=== PATIENT | female | born 1950 | race Caucasian/White ===

== ENCOUNTER → 2016-08-22 | Outpatient (CLI) | payer MEDICARE, MEDICAID ==
[~2016-08-22] MED LIST: ASPIRIN 32325 MG/TAB PO; ATARAX 25MG25 MG/TAB PO; CELEXA 20MG20 MG/TAB PO; CELEXA40 MG PO; CEPHALEXIN250 M1 PO; CIPRO 500MG TA500 MG PO; CLEOCIN HC150 MG/CAP PO; DUTOPROL 12.5 M1 TE2 PO; EFFEXOR-XR150 MG PO; FLEXERIL 1010 MG/TAB PO; FLOMAX 0.40.4 MG/CAP PO; FOSAMAX 70MG TA70 MG PO; GLUCOPHAGE500 MG/TAB PO; INDERAL 20MG20 MG PO; INDOCIN 25MG CA25 MG PO; IRON325 M2 PO; LEVAQUIN 2250 MG/TAB PO; LEVAQUIN 5500 MG/TA1 PO; LEVAQUIN 750MG750 M1 PO; LIORESAL 1010 MG/TAB PO; LIORESAL20 MG PO; MACROBID 1100 MG/CAP PO; MOTRIN 800800 MG/TAB PO; NORVASC 5MG5 MG/TAB PO; PERCOCET 325 MG1 TA2 PO; PRINIVIL10 MG PO; PROTONIX 40MG T40 MG PO; PYRIDIUM 100MG100 MG PO; TYLENOL 500MG500 MG PO; ULTRAM 50MG TAB50 MG PO; XANAX .25M0.25 MG/TA PO; ZESTRIL 20MG TA20 MG PO; ZOCOR 40MG40 MG PO
== END ==
LOC: MC.RAD 11:20
DX: Z12.31 Encounter for screening mammogram for malignant neoplasm of breast (principal); R92.1 Mammographic calcification found on diagnostic imaging of breast

== ENCOUNTER 2016-09-01 12:09 | Inpatient (IN) | payer MEDICARE, MEDICAID ==
[~2016-09-01] VITALS: Ht 162.6 cm; Wt 71.3 kg
[~2016-09-01 12:09] MED LIST changes: -CELEXA40 MG PO; -CEPHALEXIN250 M1 PO; -DUTOPROL 12.5 M1 TE2 PO; -EFFEXOR-XR150 MG PO; -FLOMAX 0.40.4 MG/CAP PO; -IRON325 M2 PO; -LEVAQUIN 2250 MG/TAB PO; -LEVAQUIN 5500 MG/TA1 PO; -LIORESAL 1010 MG/TAB PO; -NORVASC 5MG5 MG/TAB PO; -PROTONIX 40MG T40 MG PO
[2016-09-01] MEDS ORDERED: FLOMAX 0.40.4 MG/CAP PO (12:31)
[2016-09-01 13:17] LABS: BASO # 0.1 (0.0-0.2); BASO % 0.4 % (0.0-2.0); EOS # 0.1 (0.0-0.7); EOS % 0.4 % (0-4.0); GRAN # 9.8 (1.4-6.5); GRAN % 84.1 % (42.2-75.2); LYMPH # 0.8 (1.2-3.4); LYMPH % 6.5 % (20.0-51.0); MEAN CELL VOLUME 85 fl (80.0-100.0); MEAN CORPUSCULAR HGB CONC 34 g/dl (33.0-37.0); MEAN PLATELET VOLUME 11.3 fl (7.4-10.4); MONO # 0.9 (0.1-0.6); PLATELET COUNT 234 K/mm3 (130-400); RED BLOOD COUNT 3.62 M/mm3 (4.10-5.30); REDCELL DISTRIBUTION WIDTH-CV 12.3 % (11.5-14.5); WHITE BLOOD COUNT 11.7 K/mm3 (4.8-10.8)
[2016-09-01 13:20] LABS: HEMATOCRIT 30.7 % (37.0-47.0); HEMOGLOBIN 10.3 g/dl (12.5-16.0); MEAN CORPUSCULAR HEMOGLOBIN 28 pg (27.0-31.0)
[2016-09-01 13:22] LABS: ADJUSTED CALCIUM 9.9 mg/dL (8.4-10.2); ALBUMIN 3.5 gm/dL (3.5-5.0); BILIRUBIN,TOTAL 0.7 mg/dL (0.0-1.0); CALCIUM 9.5 mg/dL (8.4-10.2); CREATININE, serum 1.96 mg/dL (0.52-1.25); POTASSIUM 3.5 mmol/L (3.4-5.0); TOTAL PROTEIN 7.4 gm/dL (6.4-8.2)
[2016-09-01 13:27] LABS: PH 5 (5-8); URINE APPEARANCE Cloudy; URINE BACTERIA Many /hpf; URINE BILIRUBIN Negative (NEGATIVE); URINE BLOOD 2+ (NEGATIVE); URINE COLOR Yellow; URINE GLUCOSE Negative (NEGATIVE); URINE KETONE Negative (NEGATIVE); URINE UROBILINOGEN Negative (NEGATIVE); URINE WBC >50 /hpf
[2016-09-01 14:45] VITALS: BP 96/58; PULSE 65; TEMP 96.8
[2016-09-01] MEDS ORDERED: CELEXA40 MG PO (15:10)
[2016-09-01] MEDS ORDERED: LIORESAL20 MG PO (15:13)
[2016-09-01] MEDS ORDERED: LIORESAL 1010 MG/TAB PO (15:13)
[2016-09-01 20:52] VITALS: BP 116/62; PULSE 74; TEMP 98.2
[2016-09-02] VITALS (8 sets, daily range): BP systolic 78–110; BP diastolic 39–75; PULSE 62–71; TEMP 97.6–98.7
[2016-09-02 07:07] LABS: BASO % 0.1 % (0.0-2.0); EOS # 0.1 (0.0-0.7); EOS % 1.2 % (0-4.0); GRAN # 6.6 (1.4-6.5); GRAN % 77.3 % (42.2-75.2); LYMPH % 11.3 % (20.0-51.0); MEAN CELL VOLUME 88 fl (80.0-100.0); MEAN CORPUSCULAR HGB CONC 33 g/dl (33.0-37.0); MEAN PLATELET VOLUME 11.4 fl (7.4-10.4); MONO # 0.8 (0.1-0.6); MONO % 8.9 % (1.7-9.3); PLATELET COUNT 217 K/mm3 (130-400); RED BLOOD COUNT 2.92 M/mm3 (4.10-5.30); REDCELL DISTRIBUTION WIDTH-CV 12.8 % (11.5-14.5); WHITE BLOOD COUNT 8.5 K/mm3 (4.8-10.8)
[2016-09-02 07:13] LABS: HEMATOCRIT 25.6 % (37.0-47.0); HEMOGLOBIN 8.4 g/dl (12.5-16.0); MEAN CORPUSCULAR HEMOGLOBIN 29 pg (27.0-31.0)
[2016-09-02 07:26] LABS: CALCIUM 8.4 mg/dL (8.4-10.2); CREATININE, serum 1.52 mg/dL (0.52-1.25); POTASSIUM 3.6 mmol/L (3.4-5.0)
[2016-09-03 05:15] VITALS: BP 106/59; PULSE 70; TEMP 97.5
[2016-09-03 08:44] VITALS: BP 91/51; PULSE 73; TEMP 98.4
[2016-09-03 09:19] LABS: MEAN CELL VOLUME 89 fl (80.0-100.0); MEAN CORPUSCULAR HGB CONC 32 g/dl (33.0-37.0); MEAN PLATELET VOLUME 10.6 fl (7.4-10.4); PLATELET COUNT 308 K/mm3 (130-400); REDCELL DISTRIBUTION WIDTH-CV 13.2 % (11.5-14.5)
[2016-09-03 09:22] LABS: ADD PATHOLOGY DIFF REVIEW NO; HEMATOCRIT 27.7 % (37.0-47.0); HEMOGLOBIN 8.9 g/dl (12.5-16.0); MEAN CORPUSCULAR HEMOGLOBIN 29 pg (27.0-31.0)
[2016-09-03 09:33] LABS: CREATININE, serum 1.42 mg/dL (0.52-1.25); POTASSIUM 3.8 mmol/L (3.4-5.0)
[2016-09-03 09:35] LABS: BAND 7 % (0-10); BASOPHIL 2 % (0-2); METAMYELOCYTE 2 % (0-0); MYELOCYTE 1 % (0-0); NEUTROPHILS 63 % (42.0-75.2); PLATELET ESTIMATE NORMAL (NORMAL); TOTAL CELLS COUNTED 100
[2016-09-03 16:38] VITALS: BP 122/97; PULSE 62; TEMP 98.4
[2016-09-03 20:43] VITALS: BP 127/68; PULSE 61; TEMP 96.9
[2016-09-04 00:31] VITALS: BP 115/68; PULSE 66; TEMP 98.4
[2016-09-04 04:43] VITALS: BP 129/72; PULSE 62; TEMP 99.3
[2016-09-04 07:55] VITALS: BP 112/64; PULSE 72; TEMP 97.9
[2016-09-04 09:29] LABS: MEAN CELL VOLUME 88 fl (80.0-100.0); MEAN CORPUSCULAR HGB CONC 32 g/dl (33.0-37.0); MEAN PLATELET VOLUME 10.8 fl (7.4-10.4); PLATELET COUNT 345 K/mm3 (130-400); RED BLOOD COUNT 3.16 M/mm3 (4.10-5.30); REDCELL DISTRIBUTION WIDTH-CV 13.4 % (11.5-14.5); WHITE BLOOD COUNT 8.3 K/mm3 (4.8-10.8)
[2016-09-04 09:35] LABS: ADD PATHOLOGY DIFF REVIEW NO; HEMATOCRIT 27.7 % (37.0-47.0); HEMOGLOBIN 8.9 g/dl (12.5-16.0); MEAN CORPUSCULAR HEMOGLOBIN 28 pg (27.0-31.0)
[2016-09-04 09:37] LABS: CALCIUM 9.3 mg/dL (8.4-10.2); CREATININE, serum 1.55 mg/dL (0.52-1.25); POTASSIUM 4.2 mmol/L (3.4-5.0)
[2016-09-04 10:06] LABS: BAND 3 % (0-10); BASOPHIL 3 % (0-2); EOSINOPHIL 1 % (0-4); METAMYELOCYTE 1 % (0-0); MYELOCYTE 1 % (0-0); NEUTROPHILS 65 % (42.0-75.2); PLATELET ESTIMATE NORMAL (NORMAL); TOTAL CELLS COUNTED 100
[2016-09-04 11:55] VITALS: BP 109/73; PULSE 68; TEMP 97.8
[2016-09-04 15:44] VITALS: BP 130/54; PULSE 61; TEMP 98.1
[2016-09-04 21:07] VITALS: BP 118/73; PULSE 63; TEMP 98
[2016-09-05 01:00] VITALS: BP 115/74; PULSE 64; TEMP 97.8
[2016-09-05 04:30] VITALS: BP 113/56; PULSE 63; TEMP 97.9
[2016-09-05 07:53] VITALS: BP 127/71; PULSE 65; TEMP 98.7
[2016-09-05 11:38] VITALS: BP 110/73; PULSE 64; TEMP 97.8
[2016-09-05 11:52] LABS: CALCIUM 9.2 mg/dL (8.4-10.2); CREATININE, serum 1.52 mg/dL (0.52-1.25); POTASSIUM 4.2 mmol/L (3.4-5.0)
[2016-09-05 12:09] LABS: MEAN CELL VOLUME 87 fl (80.0-100.0); MEAN CORPUSCULAR HGB CONC 32 g/dl (33.0-37.0); MEAN PLATELET VOLUME 10.5 fl (7.4-10.4); PLATELET COUNT 409 K/mm3 (130-400); RED BLOOD COUNT 3.05 M/mm3 (4.10-5.30); REDCELL DISTRIBUTION WIDTH-CV 13.2 % (11.5-14.5); WHITE BLOOD COUNT 8.9 K/mm3 (4.8-10.8)
[2016-09-05 12:42] LABS: HEMATOCRIT 26.6 % (37.0-47.0); HEMOGLOBIN 8.6 g/dl (12.5-16.0); MEAN CORPUSCULAR HEMOGLOBIN 28 pg (27.0-31.0)
[2016-09-05 12:43] LABS: ADD PATHOLOGY DIFF REVIEW NO
[2016-09-05 14:21] LABS: BAND 6 % (0-10); EOSINOPHIL 2 % (0-4); METAMYELOCYTE 5 % (0-0); MYELOCYTE 3 % (0-0); NEUTROPHILS 60 % (42.0-75.2); TOTAL CELLS COUNTED 100
[2016-09-05 14:24] LABS: ANISOCYTOSIS 1+; HYPOCHROMIA 1+; MICROCYTOSIS 1+
[2016-09-05] MEDS ORDERED: PROTONIX 40MG T40 MG PO ×2 (15:00→15:23)
[2016-09-05] MEDS ORDERED: LEVAQUIN 5500 MG/TA1 PO (15:01)
[2016-09-05] MEDS ORDERED: IRON325 M2 PO (15:04)
[2016-09-05] MEDS ORDERED: LEVAQUIN 2250 MG/TAB PO (15:22)
== END 2016-09-05 17:00 | disposition home or self-care (01) | DRG 872 ==
LOC: COL.ER 12:09 → MEDICAL 13:46
PROVIDERS: Emergency Medicine; Internal Medicine
DX: A41.9 Sepsis, unspecified organism (principal); N10 Acute pyelonephritis; N13.6 Pyonephrosis; I12.9 Hypertensive chronic kidney disease with stage 1 through stage 4 chronic kidney disease, or unspecified chronic kidney disease; E11.22 Type 2 diabetes mellitus with diabetic chronic kidney disease; N18.3 Chronic kidney disease, stage 3 (moderate); D63.1 Anemia in chronic kidney disease; R13.10 Dysphagia, unspecified; R33.9 Retention of urine, unspecified; E86.0 Dehydration; B95.1 Streptococcus, group B, as the cause of diseases classified elsewhere; Z87.891 Personal history of nicotine dependence
CPT/HCPCS: OP; 99232-AI; 99233-AI; 99239; G0378; J1170; J1956; J7030

== ENCOUNTER 2017-02-21 14:41 | Emergency (ER) | payer MEDICARE, MEDICAID ==
[~2017-02-21] VITALS: Ht 162.6 cm; Wt 69.5 kg
[~2017-02-21 14:41] MED LIST changes: +CELEXA40 MG PO; +FLOMAX 0.40.4 MG/CAP PO; +IRON325 M2 PO; +LEVAQUIN 2250 MG/TAB PO; +LEVAQUIN 5500 MG/TA1 PO; +LIORESAL 1010 MG/TAB PO; +PROTONIX 40MG T40 MG PO
[2017-02-21 14:49] VITALS: TEMP 98.2
[2017-02-21] MEDS ORDERED: EFFEXOR-XR150 MG PO (15:53)
[2017-02-21] MEDS ORDERED: CEPHALEXIN250 M1 PO ×2 (15:53)
[2017-02-21 15:54] LABS: BASO % 0.3 % (0.0-2.0); EOS # 0.1 (0.0-0.7); EOS % 0.8 % (0-4.0); GRAN # 5.7 (1.4-6.5); GRAN % 74.4 % (42.2-75.2); LYMPH # 1.3 (1.2-3.4); LYMPH % 16.2 % (20.0-51.0); MEAN CELL VOLUME 86 fl (80.0-100.0); MEAN CORPUSCULAR HGB CONC 33 g/dl (33.0-37.0); MEAN PLATELET VOLUME 11.1 fl (7.4-10.4); MONO # 0.6 (0.1-0.6); PLATELET COUNT 228 K/mm3 (130-400); RED BLOOD COUNT 3.35 M/mm3 (4.10-5.30); REDCELL DISTRIBUTION WIDTH-CV 13.1 % (11.5-14.5); WHITE BLOOD COUNT 7.7 K/mm3 (4.8-10.8)
[2017-02-21] MEDS ORDERED: DUTOPROL 12.5 M1 TE2 PO (15:54)
[2017-02-21 15:55] LABS: HEMATOCRIT 28.7 % (37.0-47.0); HEMOGLOBIN 9.5 g/dl (12.5-16.0); MEAN CORPUSCULAR HEMOGLOBIN 28 pg (27.0-31.0)
[2017-02-21] MEDS ORDERED: NORVASC 5MG5 MG/TAB PO (15:55)
[2017-02-21] MEDS ORDERED: XANAX .25M0.25 MG/TA PO (15:56)
[2017-02-21 16:18] LABS: ADJUSTED CALCIUM 9.2 mg/dL (8.4-10.2); ALBUMIN 3.7 gm/dL (3.5-5.0); BILIRUBIN,TOTAL 0.4 mg/dL (0.0-1.0); C-REACTIVE PROTEIN 3.1 mg/dL (0.0-0.9); CREATININE, serum 2.31 mg/dL (0.52-1.25); TOTAL PROTEIN 7.1 gm/dL (6.4-8.2)
[2017-02-21 16:31] LABS: PH 5 (5-8); SQUAMOUS EPITHELIAL 0-2 /hpf; URINE APPEARANCE Clear; URINE BACTERIA Rare /hpf; URINE BILIRUBIN Negative (NEGATIVE); URINE BLOOD Negative (NEGATIVE); URINE COLOR Straw; URINE GLUCOSE Negative (NEGATIVE); URINE KETONE Negative (NEGATIVE); URINE RBC 0-2 /hpf; URINE UROBILINOGEN Negative (NEGATIVE)
[2017-02-21 19:22] VITALS: BP 142/80; PULSE 78
== END 2017-02-21 19:39 | disposition home or self-care (01) ==
LOC: COL.ER 14:41
PROVIDERS: Emergency Medicine
DX: N18.9 Chronic kidney disease, unspecified (principal); N28.9 Disorder of kidney and ureter, unspecified; R60.9 Edema, unspecified
CPT/HCPCS: J7030